=== PATIENT | male | born 1960 | race Two or more races ===

== ENCOUNTER 2020-10-23 14:02 | Inpatient (IN) | payer OTHER ==
[~2020-10-23] VITALS: Ht 170.2 cm; Wt 92.8 kg
[2020-10-23 14:59] LABS: BASOPHILS % (AUTO) 0.3 % (0-1); EOSINOPHILS % (AUTO) 0.7 % (0-6); HEMATOCRIT 42.8 % (42.0-52.0); LYMPHOCYTES # (AUTO) 0.9 X10'3 (1.1-4.8); LYMPHOCYTES % (AUTO) 14.1 % (21-51); MEAN CORPUSCULAR HGB CONC 32.7 g/dL (33.0-36.5); MEAN CORPUSCULAR VOLUME 94.6 FL (78-98); MEAN PLATELET VOLUME 8.5 FL (7.4-10.4); MONOCYTES # (AUTO) 0.4 X10'3 (0-0.9); MONOCYTES % (AUTO) 6.5 % (2-12); NEUTROPHILS # (AUTO) 5.1 X10'3 (1.8-7.7); NEUTROPHILS % (AUTO) 78.4 % (42-75); PLATELET COUNT 204 X10'3 (140-440); RED BLOOD COUNT 4.52 X10'6 (4.70-6.10); RED CELL DISTRIBUTION WIDTH 15.1 % (11.5-14.5); WHITE BLOOD COUNT 6.5 X10'3 (4.5-11.0)
[2020-10-23 15:07] LABS: PARTIAL THROMBOPLASTIN TIME 27 SECONDS (22-32)
[2020-10-23 15:09] LABS: ALANINE AMINOTRANSFERASE 145 U/L (12-78); ALBUMIN 3.8 G/DL (3.4-5.0); ALBUMIN/GLOBULIN RATIO 1.1 (1.1-1.5); ALKALINE PHOSPHATASE 86 IU/L (46-116); ANION GAP 11 (8-16); ASPARTATE AMINO TRANSFERASE 49 U/L (10-37); BILIRUBIN,TOTAL 0.9 MG/DL (0.1-1.0); BLOOD UREA NITROGEN 17 MG/DL (7-18); BUN/CREATININE RATIO 16.2 (5.4-32.0); CALCIUM 8.8 MG/DL (8.5-10.1); CHLORIDE 108 MMOL/L (99-107); CREATININE 1.05 MG/DL (0.60-1.10); GLUCOSE 144 MG/DL (70-104); POTASSIUM 3.9 MMOL/L (3.5-5.1); SODIUM 145 MMOL/L (135-145); TOTAL CARBON DIOXIDE 26.1 MMOL/L (24-32); TOTAL PROTEIN 7.2 G/DL (6.4-8.2); eGFR 72 ML/MIN
[2020-10-23] MEDS ORDERED: furosemide 10 MG/1 ML 10ml inj IV ONE (15:40)
[2020-10-23] MEDS ORDERED: NO HOME MEDS ×2 (16:22→19:32)
[2020-10-23] MEDS ORDERED: labetalol inj. 250 MG in normal saline 250ml IV soln 200 ML IV SCH (16:35)
[2020-10-23] MEDS ORDERED: iohexol 350MG/ML 100ml bottle IV ONE (16:41)
[2020-10-23] MEDS ORDERED: LABETALOL IV SCH (16:58)
[2020-10-23] MEDS ORDERED: NORMAL SALINE IV SCH (16:58)
--- NOTE | 2020-10-23 19:34 | NUR ---
Float note: Pt resting quietly in no apparent distress. Denies any complaints at this time.
[2020-10-23] MEDS ORDERED: magnesium hydroxide 30ml (MOM) UD suspension PO PRN (19:40)
[2020-10-23] MEDS ORDERED: HYDROcodone/acetaminophen 5mg/325mg tablet PO PRN (19:40)
[2020-10-23] MEDS ORDERED: magnesium 4gm in 100ml NS 100 ML IV PRN (19:40)
[2020-10-23] MEDS ORDERED: acetaminophen 325mg tablet PO PRN (19:40)
[2020-10-23] MEDS ORDERED: mag hydrox/Alum hydrox/simeth 30ml oral suspension PO PRN (19:40)
[2020-10-23] MEDS ORDERED: potassium Cl 20 mEq SR tablet PO PRN (19:40)
[2020-10-23] MEDS ORDERED: magnesium Cl slow-release 64mg tablet PO PRN (19:40)
[2020-10-23] MEDS ORDERED: ondansetron/PF 4mg/2ml inj IV PRN (19:40)
[2020-10-23] MEDS ORDERED: magnesium 2GM in 50ml NS 50 ML IV PRN (19:40)
[2020-10-23] MEDS ORDERED: potassium Cl 40MEQ/1/2NS 520ml 520 ML IV PRN ×2 (19:40)
[2020-10-23] MEDS: K and/or MAG REPLACEMENT MC SCH (20:00)
[2020-10-23] MEDS: furosemide 40mg/4ml inj IV SCH (20:52)
--- NOTE | 2020-10-23 21:00 | NUR ---
Patient in room PCU 3025. I have received report from Maurice in ED and had the opportunity to ask questions and assume patient care.
[2020-10-23 21:30] VITALS: BP 157/112
[2020-10-23 22:00] VITALS: BP 151/103
[2020-10-23] MEDS ORDERED: hydrALAZINE 20mg/ml inj. IV PRN (22:20)
[2020-10-24 02:00] VITALS: BP 150/88
--- NOTE | 2020-10-24 06:30 | NUR ---
Problems reprioritized. Patient report given, questions answered & plan of care reviewed with Angelica RAHMAN.
[2020-10-24 06:51] LABS: BASOPHILS % (AUTO) 0.2 % (0-1); EOSINOPHILS % (AUTO) 1.1 % (0-6); HEMATOCRIT 37.8 % (42.0-52.0); HEMOGLOBIN 12.7 g/dl (14.0-17.9); LYMPHOCYTES # (AUTO) 0.9 X10'3 (1.1-4.8); LYMPHOCYTES % (AUTO) 20.6 % (21-51); MEAN CORPUSCULAR HEMOGLOBIN 31.1 PG (27.0-31.0); MEAN CORPUSCULAR HGB CONC 33.6 g/dL (33.0-36.5); MEAN CORPUSCULAR VOLUME 92.6 FL (78-98); MEAN PLATELET VOLUME 8.8 FL (7.4-10.4); MONOCYTES # (AUTO) 0.4 X10'3 (0-0.9); MONOCYTES % (AUTO) 9.1 % (2-12); NEUTROPHILS # (AUTO) 2.9 X10'3 (1.8-7.7); PLATELET COUNT 170 X10'3 (140-440); RED BLOOD COUNT 4.08 X10'6 (4.70-6.10); RED CELL DISTRIBUTION WIDTH 14.8 % (11.5-14.5); WHITE BLOOD COUNT 4.2 X10'3 (4.5-11.0)
[2020-10-24 07:00] VITALS: BP 128/67
[2020-10-24 07:02] LABS: ALANINE AMINOTRANSFERASE 111 U/L (12-78); ALBUMIN 3.3 G/DL (3.4-5.0); ALBUMIN/GLOBULIN RATIO 1.1 (1.1-1.5); ALKALINE PHOSPHATASE 73 IU/L (46-116); ANION GAP 8 (8-16); ASPARTATE AMINO TRANSFERASE 36 U/L (10-37); BILIRUBIN,TOTAL 1.3 MG/DL (0.1-1.0); BLOOD UREA NITROGEN 17 MG/DL (7-18); CALCIUM 8.8 MG/DL (8.5-10.1); CHLORIDE 107 MMOL/L (99-107); GLUCOSE 96 MG/DL (70-104); POTASSIUM 3.3 MMOL/L (3.5-5.1); SODIUM 146 MMOL/L (135-145); TOTAL CARBON DIOXIDE 30.7 MMOL/L (24-32); TOTAL PROTEIN 6.2 G/DL (6.4-8.2); eGFR 76 ML/MIN
[2020-10-24 07:06] LABS: MAGNESIUM 1.7 MG/DL (1.5-2.4)
[2020-10-24] MEDS: furosemide 40mg/4ml inj IV SCH ×2 (07:34→21:11)
[2020-10-24] MEDS: potassium Cl 20 mEq SR tablet PO PRN ×3 (07:34→21:11)
[2020-10-24] MEDS: K and/or MAG REPLACEMENT MC SCH ×2 (07:51→20:00)
[2020-10-24] MEDS ORDERED: lisinopril 10 MG tablet PO ONE (08:45)
[2020-10-24] MEDS: carvedilol 6.25mg tablet PO SCH ×2 (08:45→21:11)
--- NOTE | 2020-10-24 10:28 | NUR ---
Care of patient assumed by this nurse. Patient alert and oriented. No complaints of pain or discomfort. Voiding via urinal. Will continue to monitor.
[2020-10-24 11:00] VITALS: BP 152/100
[2020-10-24 15:00] VITALS: BP 137/86
[2020-10-24 18:00] VITALS: BP 152/96
--- NOTE | 2020-10-24 18:38 | NUR ---
Patient in room PCU 3025. I have received report from Angelica RAHMAN and had the opportunity to ask questions and assume patient care.
[2020-10-24 22:00] VITALS: BP 149/99
[2020-10-25 02:00] VITALS: BP 121/67
--- NOTE | 2020-10-25 06:24 | NUR ---
Problems reprioritized. Patient report given, questions answered & plan of care reviewed with Keri RAHMAN.
--- NOTE | 2020-10-25 06:36 | NUR ---
Patient in room PCU 3025. I have received report from john obrien and had the opportunity to ask questions and assume patient care.
[2020-10-25 06:52] LABS: BASOPHILS % (AUTO) 0.4 % (0-1); EOSINOPHILS # (AUTO) 0.1 X10'3 (0-0.9); EOSINOPHILS % (AUTO) 2.1 % (0-6); HEMATOCRIT 41.2 % (42.0-52.0); HEMOGLOBIN 13.9 g/dl (14.0-17.9); LYMPHOCYTES # (AUTO) 0.7 X10'3 (1.1-4.8); LYMPHOCYTES % (AUTO) 16.7 % (21-51); MEAN CORPUSCULAR HEMOGLOBIN 31.4 PG (27.0-31.0); MEAN CORPUSCULAR HGB CONC 33.7 g/dL (33.0-36.5); MEAN PLATELET VOLUME 8.1 FL (7.4-10.4); MONOCYTES # (AUTO) 0.5 X10'3 (0-0.9); MONOCYTES % (AUTO) 10.9 % (2-12); NEUTROPHILS # (AUTO) 3.1 X10'3 (1.8-7.7); NEUTROPHILS % (AUTO) 69.9 % (42-75); PLATELET COUNT 181 X10'3 (140-440); RED BLOOD COUNT 4.43 X10'6 (4.70-6.10); RED CELL DISTRIBUTION WIDTH 14.9 % (11.5-14.5); WHITE BLOOD COUNT 4.5 X10'3 (4.5-11.0)
[2020-10-25 06:59] VITALS: BP 144/96
[2020-10-25 07:10] LABS: ALANINE AMINOTRANSFERASE 106 U/L (12-78); ALBUMIN 3.6 G/DL (3.4-5.0); ALBUMIN/GLOBULIN RATIO 1.1 (1.1-1.5); ALKALINE PHOSPHATASE 84 IU/L (46-116); ANION GAP 7 (8-16); ASPARTATE AMINO TRANSFERASE 39 U/L (10-37); BILIRUBIN,TOTAL 1.6 MG/DL (0.1-1.0); BLOOD UREA NITROGEN 22 MG/DL (7-18); BUN/CREATININE RATIO 20.4 (5.4-32.0); CALCIUM 9.3 MG/DL (8.5-10.1); CHLORIDE 106 MMOL/L (99-107); CREATININE 1.08 MG/DL (0.60-1.10); GLUCOSE 104 MG/DL (70-104); MAGNESIUM 1.9 MG/DL (1.5-2.4); POTASSIUM 3.9 MMOL/L (3.5-5.1); SODIUM 146 MMOL/L (135-145); TOTAL CARBON DIOXIDE 32.8 MMOL/L (24-32); TOTAL PROTEIN 6.9 G/DL (6.4-8.2); eGFR 69 ML/MIN
[2020-10-25] MEDS: carvedilol 6.25mg tablet PO SCH (07:52)
[2020-10-25] MEDS: furosemide 40mg/4ml inj IV SCH (07:53)
[2020-10-25] MEDS ORDERED: lisinopril 10 MG tablet PO SCH (08:00)
[2020-10-25] MEDS: K and/or MAG REPLACEMENT MC SCH (08:00)
[2020-10-25] MEDS ORDERED: CARV6.253 PO (11:38)
[2020-10-25] MEDS ORDERED: FURO40TA4 PO (11:38)
[2020-10-25] MEDS ORDERED: LISI10TA4 PO (11:38)
[2020-10-25 13:00] VITALS: BP 140/82
--- NOTE | 2020-10-25 13:36 | NUR ---
PT DISCHARGED IN STABLE CONDITION. LEFT FACILITY IN PRIVATE VEHICLE WITH . IV DC CANULA INTACT. ALL BELONGINGS IN HAND INCLUDING RX TO TAKE TO PHARMACY. FOLLOW UP INSTRUCTIONS GIVEN, ALL QUESTIONS ANSWERED. Addendum: 10/25/20 at 1337 by Samantha Herr RN Amended: Links added.
== END 2020-10-25 13:36 | disposition home or self-care (01) | DRG 304 ==
LOC: ER 14:03 → ED HOLD 19:39 → PCU 3S 21:30
PROVIDERS: ADMIT Family Medicine; ATTEND Family Medicine
PROC: B32T1ZZ Computerized Tomography (CT Scan) of Left Pulmonary Artery using Low Osmolar Contrast (ICD-10-PCS; principal; 2020-10-23)
PROC: B3201ZZ Computerized Tomography (CT Scan) of Thoracic Aorta using Low Osmolar Contrast (ICD-10-PCS; 2020-10-23)
PROC: B32S1ZZ Computerized Tomography (CT Scan) of Right Pulmonary Artery using Low Osmolar Contrast (ICD-10-PCS; 2020-10-23)
DX: I16.1 Hypertensive emergency (principal); I50.21 Acute systolic (congestive) heart failure; I34.0 Nonrheumatic mitral (valve) insufficiency; E87.6 Hypokalemia; Z20.828 Contact with and (suspected) exposure to other viral communicable diseases; R74.01 Elevation of levels of liver transaminase levels; Z79.899 Other long term (current) drug therapy
CPT/HCPCS: 36415; 71045; 71275; 74174; 76937; 80053; 83735; 83880; 84484; 85025; 85610; 85730; 87081; 87635; 93005; 93306; 93308; 96365; 96375; 99285; C9803; G0378; J1940; J3490; J7050; Q9967